=== PATIENT | female | born 1985 | race Caucasian/White ===

== ENCOUNTER 2018-05-05 14:37 | Outpatient (REF) | payer OTHER, SELFPAY ==
--- NOTE | 2018-05-05 14:10 | PAPFT_PTH ---
PATIENT: ISABELL TORRES LOC: [facility] U#:[id number] AGE/SX: 33/F ROOM: RE05/05/[address]: Shona Alexandre RN : 1985 BED: DIS: 05/05/2018 SPEC #: [id number] RECD: 05/05/18 18:11 STATUS: ANN MARIE REQ #: [id number] ALICIA: 05/05/18 14:[address]: Shona Alexandre DEPT: [facility] Cytology RECD BY: Evette Galindo ENTERED: 05/05/18 18:11 SP TYPE: PAPFT OTHR DR: Archana Quintanilla Tissues: 1 - CX/ENDOCX FOR PAP SMEARS Procedures: PAP THIN PREP/UVM Screening HPV DNA PROBE Comments: [id number]
[2018-05-05 15:42] LABS: *AMPHETAMINES SCREEN URINE Negative (Negative); *BARBITURATES SCREEN URINE Negative (Negative); *BENZODIAZEPINES SCREEN URINE Negative (Negative); Cannabinoids THC Negative (Negative); Cocaine Screen,Urine Negative (Negative); METHADONE URINE SCREEN Negative (Negative); OPIATES URINE SCREEN Negative (Negative)
[2018-05-05 15:49] LABS: Tricyclic Antidepressants Negative (Negative)
[2018-05-06 14:17] LABS: Chlamydia Result Negative; GC Result Negative; Specimen Description CERVIX
[2018-05-08 14:36] LABS: Buprenorphine Negative; Norbuprenorphine Negative
== END 2018-05-05 14:57 ==
LOC: LBN 14:37
PROVIDERS: PCP Nurse Practitioner Family; Visit Provider Advanced Practice Midwife
DX: Z11.3 Encounter for screening for infections with a predominantly sexual mode of transmission (principal); Z34.91 Encounter for supervision of normal pregnancy, unspecified, first trimester; Z12.4 Encounter for screening for malignant neoplasm of cervix; Z11.51 Encounter for screening for human papillomavirus (HPV)
CPT/HCPCS: 80307; 87077; 87491; 87591; 88142; 87086; 87186; 87624

== ENCOUNTER 2018-05-14 15:50 | Observation (INO) | payer OTHER, SELFPAY ==
[2018-05-14 15:34] VITALS: BP 138/82; PULSE 65; RESP 16; TEMP 36.5; O2SAT 100
[2018-05-14] MEDS: Fosfomycin Tromethamine 3 GM PACKET PO (16:51)
== END 2018-05-14 18:53 | disposition home or self-care (01) ==
PROVIDERS: Admitting Provider Advanced Practice Midwife; PCP Nurse Practitioner Family; Visit Provider Advanced Practice Midwife
DX: O23.40 Unspecified infection of urinary tract in pregnancy, unspecified trimester (principal); Z88.8 Allergy status to other drugs, medicaments and biological substances
CPT/HCPCS: G0378; J3490

== ENCOUNTER 2018-05-25 17:20 | Outpatient (REF) | payer OTHER, SELFPAY | END 2018-05-25 17:40 | LOC: LBN 17:20 | PROVIDERS: PCP Nurse Practitioner Family; Visit Provider Obstetrics & Gynecology | DX: O23.41 Unspecified infection of urinary tract in pregnancy, first trimester (principal) | CPT/HCPCS: 87086 ==

== ENCOUNTER 2018-06-02 09:03 | Outpatient (CLI) | payer OTHER, SELFPAY ==
[2018-06-02 12:27] LABS: Abs Immature Grans 0.02 k/cumm (0.0-0.09); Absolute Basophil Count 0.02 k/cumm (0.0-0.2); Absolute Eosinophil Count 0.04 k/cumm (0.0-0.7); Absolute Lymphocyte Count 1.96 k/cumm (1.2-3.4); Absolute Monocyte Count 0.44 k/cumm (0.11-0.7); Absolute Neutrophil Count 6.22 k/cumm (1.2-6.7); Basophils % 0.2; Eosinophils % 0.5; HCT 36.6 % (36.0-46.0); HGB 13.3 g/dL (12.0-15.5); Immature Grans % 0.2; Lymphocytes % 22.5; Mean Corp. HGB Concentration 36.3 g/dL (32.0-36.0); Mean Corpuscular Hemoglobin 31.5 pg (27.0-33.0); Mean Corpuscular Volume 86.7 fL (80-95); Mean Platelet Volume 11.6 fL (8.0-11.0); Monocytes % 5.1; Neutrophils % 71.5; Platelet Count 165 x1000/uL (130-400); RBC 4.22 m/cumm (4.00-5.20); RBC Distribution Width 13.1 % (11.7-14.6)
[2018-06-02 12:34] LABS: Glucose,1 Hr (Glucola) 115 mg/dL (80-140)
[2018-06-02 13:06] LABS: TSH (W/Ref FT4) 1.92 uIU/mL (0.358-3.74)
[2018-06-03 09:57] LABS: Hepatitis B Surface Ag Negative (NEGAT)
[2018-06-03 10:04] LABS: HIV-1/2 Ag & Ab Screen Negative (NEGAT)
[2018-06-03 10:08] LABS: Hepatitis C Ab w Rflx HCV PCR Negative (NEGAT)
[2018-06-03 11:29] LABS: Rubella IgG Ab (UVM) Positive; Syphilis Serology (RPR) Negative (Negative); Varicella IgG Antibody Positive
== END 2018-06-02 09:23 ==
PROVIDERS: Advanced Practice Midwife; Obstetrics & Gynecology; PCP Nurse Practitioner Family; Visit Provider Obstetrics & Gynecology Gynecology
DX: Z34.91 Encounter for supervision of normal pregnancy, unspecified, first trimester (principal); Z11.59 Encounter for screening for other viral diseases; Z01.84 Encounter for antibody response examination; Z11.4 Encounter for screening for human immunodeficiency virus [HIV]
CPT/HCPCS: 36415; 80055; 82950; 86787; 86803; 86850; 86900; 86901; 87340; 87389; 84443; 86592; 86762

== ENCOUNTER 2018-07-29 16:23 | Outpatient (REF) | payer MEDICAID, SELFPAY | END 2018-07-29 16:43 | LOC: LBN 16:23 | PROVIDERS: PCP Nurse Practitioner Family; Visit Provider Advanced Practice Midwife | DX: O26.899 Other specified pregnancy related conditions, unspecified trimester (principal); R30.0 Dysuria; Z34.92 Encounter for supervision of normal pregnancy, unspecified, second trimester | CPT/HCPCS: 87077; 87086; 87480; 87510; 87660 ==

== ENCOUNTER 2018-08-21 22:37 | Observation (INO) | payer MEDICAID, SELFPAY ==
[2018-08-21] MEDS: Lactated Ringers 1,000 ML 150 ML IV (23:47)
[2018-08-21 23:56] LABS: Fetal Fibronectin Negative (Negative)
== END 2018-08-22 01:44 | disposition home or self-care (01) ==
LOC: OBS 08-23 09:30
PROVIDERS: Admitting Provider Obstetrics & Gynecology; PCP Nurse Practitioner Family; Visit Provider Obstetrics & Gynecology
DX: O23.42 Unspecified infection of urinary tract in pregnancy, second trimester (principal); Z3A.27 27 weeks gestation of pregnancy
CPT/HCPCS: 96360; 96361; 82731; G0378

== ENCOUNTER 2018-08-30 12:17 | Outpatient (CLI) | payer MEDICAID, SELFPAY ==
[2018-08-30 12:52] LABS: HCT 38.1 % (36.0-46.0); HGB 13.5 g/dL (12.0-15.5); Mean Corp. HGB Concentration 35.4 g/dL (32.0-36.0); Mean Corpuscular Hemoglobin 31.8 pg (27.0-33.0); Mean Corpuscular Volume 89.9 fL (80-95); Mean Platelet Volume 11.5 fL (8.0-11.0); Platelet Count 181 x1000/uL (130-400); RBC 4.24 m/cumm (4.00-5.20); RBC Distribution Width 13.3 % (11.7-14.6); White Blood Cell Count 10.67 k/cumm (4.4-10.8)
[2018-08-30 13:21] LABS: Glucose,1 Hr (Glucola) 130 mg/dL (80-140)
== END 2018-08-30 12:37 ==
PROVIDERS: Advanced Practice Midwife; PCP Nurse Practitioner Family; Visit Provider Obstetrics & Gynecology Gynecology
DX: Z34.93 Encounter for supervision of normal pregnancy, unspecified, third trimester (principal)
CPT/HCPCS: 36415; 82950; 85027

== ENCOUNTER 2018-09-17 16:42 | Outpatient (REF) | payer MEDICAID, SELFPAY | END 2018-09-17 17:02 | LOC: LBN 16:42 | PROVIDERS: PCP Nurse Practitioner Family; Visit Provider Obstetrics & Gynecology Gynecology | DX: O26.893 Other specified pregnancy related conditions, third trimester (principal); R10.2 Pelvic and perineal pain; Z34.93 Encounter for supervision of normal pregnancy, unspecified, third trimester | CPT/HCPCS: 87086 ==

== ENCOUNTER 2018-10-01 09:44 | Outpatient (CLI) | payer MEDICAID, SELFPAY ==
--- NOTE | 2018-10-01 10:39 | DI.US_ITS ---
SYMPTOMS/DIAGNOSIS: DECREASED MOVEMENT BIOPHYSICAL PROFILE: Predicted Gestational Age: Indication/History: 33+3 Wks Range: to Prior US done on: Determined by: First US LMP X History EDC by prior US: 11/18/18 For multiple gestations: Baby PLACENTA: Grade: II Location: Anterior X Posterior PRESENTATION: RT LT LOW LYING PREVIA X FUNDAL Cephalic Trans (Head RT LT ) Varied Breech X BIOMETRY: Anatomy Identified: BPD: mm wks 4 chamber Heart Heart Rate 155 BPM HC: mm wks LVOT Post Fossa AC: mm wks RVOT Ventricles FL: mm wks Stomach Nose Bladder Lips Cisterna Magna: mm CI: Kidneys Palate Cerebellum: mm 3 vessel cord Spine EFW: grms % Cord Insertion NS= not seen Composite Age (US) wks Many abnormalities cannot be diagnosed. A normal exam does not exclude congenital abnormality. EDC by US Amniotic Fluid Index: Normal RUQ: 3.9 LUQ: 2.6 RLQ: 1.1 LLQ: 3.5 Total: 11.1 cm Biophysical Profile: Score 0/2 SHAYY (>2cm) ____2/2____ Respirations (>30 sec) ____2/2____ Body flexion/extension ___2/2 Extremity flexion/extension ____2/2____ TOTAL SCORE __8/8 COMMENTS: The amount of amniotic fluid is normal with an SHAYY of 11.1. The biophysical profile is normal with a score of 8. The placenta is fundal. The fetus is in breech position. cardiac activity is identified. IMPRESSION: Normal biophysical profile.
== END 2018-10-01 10:04 ==
PROVIDERS: PCP Nurse Practitioner Family; Visit Provider Obstetrics & Gynecology
DX: O36.8130 Decreased fetal movements, third trimester, not applicable or unspecified (principal); Z3A.33 33 weeks gestation of pregnancy
CPT/HCPCS: 76815; 59025; 76819

== ENCOUNTER 2018-10-18 12:53 | Outpatient (REF) | payer MEDICAID, SELFPAY | END 2018-10-18 13:13 | LOC: LBN 12:53 | PROVIDERS: PCP Nurse Practitioner Family; Visit Provider Obstetrics & Gynecology Gynecology | DX: Z34.90 Encounter for supervision of normal pregnancy, unspecified, unspecified trimester (principal); Z88.0 Allergy status to penicillin; Z36.85 Encounter for antenatal screening for Streptococcus B | CPT/HCPCS: 87081 ==

== ENCOUNTER 2018-10-26 14:28 | Outpatient (REF) | payer MEDICAID, SELFPAY ==
[2018-10-26 18:04] LABS: *AMPHETAMINES SCREEN URINE Negative (Negative); *BARBITURATES SCREEN URINE Negative (Negative); *BENZODIAZEPINES SCREEN URINE Negative (Negative); Cannabinoids THC Negative (Negative); Cocaine Screen,Urine Negative (Negative); METHADONE URINE SCREEN Negative (Negative); OPIATES URINE SCREEN Negative (Negative)
[2018-10-26 18:07] LABS: Tricyclic Antidepressants Negative (Negative)
== END 2018-10-26 14:48 ==
LOC: LBN 14:28
PROVIDERS: PCP Nurse Practitioner Family; Visit Provider Obstetrics & Gynecology
DX: Z34.93 Encounter for supervision of normal pregnancy, unspecified, third trimester (principal)
CPT/HCPCS: 80307

== ENCOUNTER 2018-11-08 10:49 | Outpatient (CLI) | payer MEDICAID, SELFPAY ==
[2018-11-08 11:11] LABS: HCT 37.6 % (36.0-46.0); HGB 13.3 g/dL (12.0-15.5); Mean Corp. HGB Concentration 35.4 g/dL (32.0-36.0); Mean Corpuscular Hemoglobin 31.5 pg (27.0-33.0); Mean Corpuscular Volume 89.1 fL (80-95); Mean Platelet Volume 11.9 fL (8.0-11.0); Platelet Count 158 x1000/uL (130-400); RBC 4.22 m/cumm (4.00-5.20); RBC Distribution Width 13.4 % (11.7-14.6); White Blood Cell Count 8.93 k/cumm (4.4-10.8)
[2018-11-08 12:48] LABS: Anion Gap 12.2 mmol/L (3-11); BUN 11 mg/dL (7-18); CO2 20.8 mmol/L (21.0-32.0); CREATININE 0.73 mg/dL (0.55-1.02); Calcium 8.9 mg/dL (8.5-10.1); Chloride 103 mmol/L (98-107); Glucose 75 mg/dL (70-100); Potassium 4.1 mmol/L (3.5-5.1); Sodium 136 mmol/L (136-145)
== END 2018-11-08 11:09 ==
PROVIDERS: PCP Nurse Practitioner Family; Visit Provider Obstetrics & Gynecology Gynecology
DX: O34.211 Maternal care for low transverse scar from previous cesarean delivery (principal); Z30.2 Encounter for sterilization; Z01.812 Encounter for preprocedural laboratory examination; Z01.818 Encounter for other preprocedural examination
CPT/HCPCS: 36415; 80048; 85027; 86850; 86900; 86901

== ENCOUNTER 2018-11-10 06:09 | Inpatient (IN) | payer MEDICAID, SELFPAY ==
--- NOTE | 2018-11-09 18:27 | W.PM.HP.N ---
Date of service: 11/09/18 Time of Service: 18:27 Assessment and Plan (1) : Current visit: No Status: Acute Qualifiers: Weeks of gestation: 39 weeks Qualified Code(s): Z3A.39 - 39 weeks gestation of (2) Previous section: Current visit: No Status: Chronic Patient has declined a trial of labor. She will undergo a elective repeat delivery on 5564 2018. She has been counseled regarding the risks of the procedure including the risk of infection risk of damage to bowel bladder and surrounding structures including ureters. She is aware that if she were to go to labor she has not opportunity will be encouraged to attempt a trial of labor. Patient desires tubal sterilization at the time of surgery. She has been counseled regarding LARC and declines alternative methods of contraception. She is firm in her decision not have any future pregnancies. (3) Severe allergic reaction with respiratory distress: Current visit: No Status: Acute Plan is no narcotics Intra-Op or postop. History of Present Illness Chief Complaint: Elective repeat delivery Narrative: Ms. Alejo is a 33-year-old G2, P1 female with an estimated date of delivery of 11/18/2018 currently 38-5/7 weeks estimated gestational age who presents for a preoperative history and physical. Patient has been counseled during this regarding . She declined a trial of labor. course Continue to care at 8 weeks estimated gestational age. Total of 14 visits. First trimester blood pressure 129/74. Third trimester blood pressure 132/89 Total weight gain 21 pounds. Size has been equal to dates. She had a normal second trimester morphology ultrasound. Advanced maternal age. Normal [place] testing. Issues this -Multiple allergies. Review her chart showed no evidence of anaphylaxis to antibiotics she did have an episode of throat closing and was treated for an anaphylactic reaction to morphine at the [facility] emergency department prior to . We attempted to have allergy testing performed during this but no lodge sales associate was willing to treat the patient while she was . Because of the patient's adverse reaction to morphine analgesia was consulted and a plan was formulated. She will receive no Duramorph in her spinal and have Exparel infiltrated in her SQ tissue around her Pfannenstiel skin incision. Nonsteroidal anti-inflammatories will be the patient's primary mode of analgesia. -GBS UCx +. She was treated first trimester second trimester test of cure showed mixed gram-positive claribel. Review of Systems Constitutional Reports difficulty sleeping and Reports other (Nervous about the surgery and about being allergic) Comments: Concerned that she may have an adverse reaction to any medications administered during the surgery. Respiratory Reports system reviewed and no additional complaints, except as docu Gastrointestinal Reports cramping Genitourinary Comments: Frequent movement. Odilon King contractions. Musculoskeletal Reports other (Bilateral lower extremity edema) Psychiatric Reports anxiety (But having an allergic reaction to inadvertently given morphine) [facility] Medical History UTI (urinary tract infection) during (Acute) Anal pruritus (Resolved) Positive urine test (Acute) Allergy to morphine (Acute) BMI 34.0-34.9,adult (Resolved) RLQ abdominal pain (Resolved) Surgical History Previous section (Chronic) section (~2014) Colonoscopy - MAC (08/20/17) Social History Smoking/Tobacco Use Status: Never Alcohol Intake: never Details: Stopped all alcohol with positive test Drug use: Never Substance use type: does not use Household members: spouse, children and other Details: Jerome, daughter Pooja Number of Children: 1 Seatbelt use: always Do you feel safe in your relationship?: Yes Female Reproductive History Menstrual control method: none History History 2 Para 1 Hx # Term Pregnancies 1 Multiple births 0 Hx # Pregnancies 0 Ectopic pregnancies 0 AB induced 0 Hx Number of Living Children 1 AB spontaneous 0 Past Pregnancies Del. Date GA/Weeks # Outcome Route Wgt Sex Labor Lgth Anesthesia Location Prov Complic Unknown 40 No Successful 8 lb Female breech, [facility] 01/24/16 Delivery Date: 01/24/16 No notes to display Delivery Date: On 05/05/18 @ 13:26 MABEL CHOI desires repeat c/s. Meds Home Medications Medication Instructions Recorded Confirmed Type PNV cmb#95-ferrous fumarate-FA 1 ea PO DAILY 04/22/17 11/08/18 History [Prenavite] hydrocortisone acetate 1 gm TOPICAL BID #1 script 09/01/17 11/08/18 Rx ranitidine 150 mg tablet 150 mg PO DAILY #30 tab 05/05/18 11/08/18 Rx epinephrine 0.3 mg/0.3 mL 0.3 mg IM ONCE #2 each 05/14/18 11/08/18 Rx injection, auto-injector Allergies Allergy/AdvReac Type Severity Reaction Status Date / Time morphine Allergy Severe Anaphylaxsis-episode Verified 11/08/18 10:31 at [facility] ED amoxicillin Allergy Intermediate Is Verified 11/08/18 10:31 allergic but no anaphylaxis nitrofurantoin Allergy Intermediate No Verified 11/08/18 10:31 [From Macrobid] Anaphylaxsis Sulfa (Sulfonamide Allergy Intermediate No Verified 11/08/18 10:31 Antibiotics) Anaphylaxsis Exam Const General: anxious (Tearful during conversation) Orientation: alert, awake and oriented x3 Resp Effort & Inspection: normal respiratory effort Auscultation: clear to auscultation bilaterally Cardio Palpation: normal PMI Rate: regular rate Rhythm: regular rhythm Heart Sounds: S1 normal and S2 normal GI Inspection: normal to inspection Palpation: soft General: deferred OB/External & Speculum: deferred Other: heart rate in 140s Skin General skin exam: no rashes or lesions noted
--- NOTE | 2018-11-09 18:30 | HPE_ITS ---
Date of service: 11/09/18 Time of Service: 18:27 Assessment and Plan (1) : Current visit: No Status: Acute Qualifiers: Weeks of gestation: 39 weeks Qualified Code(s): Z3A.39 - 39 weeks gestation of (2) Previous section: Current visit: No Status: Chronic Patient has declined a trial of labor. She will undergo a elective repeat delivery on 5564 2018. She has been counseled regarding the risks of the procedure including the risk of infection risk of damage to bowel bladder and surrounding structures including ureters. She is aware that if she were to go to labor she has not opportunity will be encouraged to attempt a trial of labor. Patient desires tubal sterilization at the time of surgery. She has been counseled regarding LARC and declines alternative methods of contraception. She is firm in her decision not have any future pregnancies. (3) Severe allergic reaction with respiratory distress: Current visit: No Status: Acute Plan is no narcotics Intra-Op or postop. History of Present Illness Chief Complaint: Elective repeat delivery Narrative: Ms. Alejo is a 33-year-old G2, P1 female with an estimated date of delivery of 11/18/2018 currently 38-5/7 weeks estimated gestational age who presents for a preoperative history and physical. Patient has been counseled during this regarding . She declined a trial of labor. course Continue to care at 8 weeks estimated gestational age. Total of 14 visits. First trimester blood pressure 129/74. Third trimester blood pressure 132/89 Total weight gain 21 pounds. Size has been equal to dates. She had a normal second trimester morphology ultrasound. Advanced maternal age. Normal [place] testing. Issues this -Multiple allergies. Review her chart showed no evidence of anaphylaxis to antibiotics she did have an episode of throat closing and was treated for an anaphylactic reaction to morphine at the [facility] emergency department prior to . We attempted to have allergy testing performed during this but no bus repair supervisor was willing to treat the patient while she was . Because of the patient's adverse reaction to morphine analgesia was consulted and a plan was formulated. She will receive no Duramorph in her spinal and have Exparel infiltrated in her SQ tissue around her Pfannenstiel skin incision. Nonsteroidal anti-inflammatories will be the patient's primary mode of analgesia. -GBS UCx +. She was treated first trimester second trimester test of cure showed mixed gram-positive claribel. Review of Systems Constitutional Reports difficulty sleeping and Reports other (Nervous about the surgery and about being allergic) Comments: Concerned that she may have an adverse reaction to any medications administered during the surgery. Respiratory Reports system reviewed and no additional complaints, except as docu Gastrointestinal Reports cramping Genitourinary Comments: Frequent movement. Odilon King contractions. Musculoskeletal Reports other (Bilateral lower extremity edema) Psychiatric Reports anxiety (But having an allergic reaction to inadvertently given morphine) [facility] Medical History UTI (urinary tract infection) during (Acute) Anal pruritus (Resolved) Positive urine test (Acute) Allergy to morphine (Acute) BMI 34.0-34.9,adult (Resolved) RLQ abdominal pain (Resolved) Surgical History Previous section (Chronic) section (~2014) Colonoscopy - MAC (08/20/17) Social History Smoking/Tobacco Use Status: Never Alcohol Intake: never Details: Stopped all alcohol with positive test Drug use: Never Substance use type: does not use Household members: spouse, children and other Details: Jerome, daughter Pooja Number of Children: 1 Seatbelt use: always Do you feel safe in your relationship?: Yes Female Reproductive History Menstrual control method: none History History 2 Para 1 Hx # Term Pregnancies 1 Multiple births 0 Hx # Pregnancies 0 Ectopic pregnancies 0 AB induced 0 Hx Number of Living Children 1 AB spontaneous 0 Past Pregnancies Del. Date GA/Weeks # Outcome Route Wgt Sex Labor Lgth Anesthesia Location Prov Complic Unknown 40 No Successful 8 lb Female breech, [facility] 01/24/16 Delivery Date: 01/24/16 No notes to display Delivery Date: On 05/05/18 @ 13:26 MABEL CHOI desires repeat c/s. Meds Home Medications Medication Instructions Recorded Confirmed Type PNV cmb#95-ferrous fumarate-FA 1 ea PO DAILY 04/22/17 11/08/18 History [Prenavite] hydrocortisone acetate 1 gm TOPICAL BID #1 script 09/01/17 11/08/18 Rx ranitidine 150 mg tablet 150 mg PO DAILY #30 tab 05/05/18 11/08/18 Rx epinephrine 0.3 mg/0.3 mL 0.3 mg IM ONCE #2 each 05/14/18 11/08/18 Rx injection, auto-injector Allergies Allergy/AdvReac Type Severity Reaction Status Date / Time morphine Allergy Severe Anaphylaxsis-episode Verified 11/08/18 10:31 at [facility] ED amoxicillin Allergy Intermediate Is Verified 11/08/18 10:31 allergic but no anaphylaxis nitrofurantoin Allergy Intermediate No Verified 11/08/18 10:31 [From Macrobid] Anaphylaxsis Sulfa (Sulfonamide Allergy Intermediate No Verified 11/08/18 10:31 Antibiotics) Anaphylaxsis Exam Const General: anxious (Tearful during conversation) Orientation: alert, awake and oriented x3 Resp Effort & Inspection: normal respiratory effort Auscultation: clear to auscultation bilaterally Cardio Palpation: normal PMI Rate: regular rate Rhythm: regular rhythm Heart Sounds: S1 normal and S2 normal GI Inspection: normal to inspection Palpation: soft General: deferred OB/External & Speculum: deferred Other: heart rate in 140s Skin General skin exam: no rashes or lesions noted
[2018-11-10] VITALS (14 sets, daily range): BP systolic 121–134; BP diastolic 70–86; PULSE 71–86; RESP 16–18; TEMP 36.6–37.1; O2SAT 94–98
[2018-11-10] MEDS: Lactated Ringers 1,000 ML 125 ML IV ×2 (07:03→19:42)
[2018-11-10] MEDS: Sodium Citrate 30 ML CUP PO (07:31)
--- NOTE | 2018-11-10 08:36 | FALL_PTH ---
PATIENT: ISABELL TORRES LOC: [facility] U#:[id number] AGE/SX: 33/F ROOM: OBS.301 RE11/10/[address]: Emily Yao : 1985 BED: A DIS: 11/13/2018 SPEC #: [id number] RECD: 11/10/18 12:13 STATUS: ANN MARIE REQ #: [id number] ALICIA: 11/10/18 08:[address]: Emily Yao DEPT: Surgical Specimen RECD BY: Evette Galindo ENTERED: 11/10/18 12:14 SP TYPE: Fall OTHR DR: Archana Quintanilla MD Tissues: 1 - FALLOPIAN TUBE (STERILIZATION) 2 - FALLOPIAN TUBE (STERILIZATION) Procedures: GROSS AND MICRO LEVEL 2 Comments: [id number]
[2018-11-10] MEDS: Bupivacaine 0.5% Pres-Free 30 ML VIAL (08:55)
[2018-11-10] MEDS: FentaNYL/ROPIvacaine 2 mcg/ml and 0.1% 200 ML CADD Cassette EP (11:58)
[2018-11-10] MEDS: Bupivacaine 0.25% Pres-Free 10 ML VIAL EP (11:58)
[2018-11-10] MEDS: fentaNYL 100 MCG/2 ML VIAL EP (12:21)
[2018-11-10] MEDS: Bupivacaine 0.25% Pres-Free 30 ML VIAL (12:21)
--- NOTE | 2018-11-10 12:42 | W.PM.OP ---
Date of service: 11/10/18 Time of Service: 12:44 Operative Note DATE OF PROCEDURE: 11/10/18 PRE-OP DIAGNOSIS: Elective repeat delivery with bilateral tubal sterilization POST-OP DIAGNOSIS: same PROCEDURE: Low transverse delivery with bilateral salpingectomy SUPERVISORY CIVIL ENGINEER: Summer Dang ANESTHESIA: spinal ESTIMATED BLOOD LOSS: 600 PATHOLOGY: other (Bilateral fallopian tubes to pathology) COMPLICATIONS: None Patient was transported to: floor Patient's condition: stable Indications: 33-year-old G2, P1 female who underwent a primary delivery 3 years ago for breech presentation presents for he scheduled elective repeat delivery. Patient requested permanent sterilization at the time of her delivery Findings: Viable male infant in the cephalic presentation not engaged in the pelvis. Clear amniotic fluid normal uterus fallopian tubes and ovaries. His parents intend to name him Geovani. Procedure Description: Patient was taken to the operating room where she was placed in the sitting position and spinal anesthesia was administered without difficulty. She was then placed in the dorsal-supine position with a leftward tilt, a Elizabeth catheter was inserted to gravity drainage, the vagina was prepped with Betadine and her abdomen was prepped and draped in the usual sterile fashion. Lower extremity SCDs were in place. She received 2 g of Ancef prior to skin incision and surgical timeout was performed. After an adequate level of anesthesia was obtained a scalpel was used to incise the previous Pfannenstiel skin incision scar. Sub-cutaneous tissue was then dissected using electrocautery to level the rectus fascia. Rectus fascia was nicked in the midline and the incision extended laterally using curved Rodriguez scissors. 2 hiram clamps were applied to the superior aspect of this incision and the rectus fascia was dissected off of the underlying rectus muscles using blunt technique and Bovie electrocautery. A similar technique was carried out on the superior aspect of this incision. Rectus muscles were then midline and the peritoneum entered bluntly. A bladder blade was then placed into the abdominal incision and the bladder retracted away from the operative field. The vesicouterine peritoneum was incised with Metzenbaum scissors, the incision was extended laterally, and bladder flap created digitally. A scalpel was used to make a transverse incision in the lower uterine segment. The amniotic sac was ruptured with blunt techique and copious clear amniotic fluid was noted. A single gloved hand was placed into the uterine cavity and the head was noted to be in the cephalic position and not engaged. The fetus was delivered through the incision using a Kiwi cup with the assistance of fundal pressure. Four applications of the kiwi cup were performed before the uterine incision was extended laterally and the head was delivered followed by the shoulders, trunk and lower extremities without difficulty. Cord was doubly clamped and cut and the infant was handed off to the pediatric team. The placenta was delivered with a combination of fundal uterine massage and gentle cord traction. Uterus was then exteriorized cleared of all clots and debris and the uterine incision was reapproximated with a running lock suture of 0 Vicryl followed by a second imbricating suture of 0 Vicryl. Several interrupted sutures of 0 Vicryl was used along the uterine incision to achieve excellent hemostasis. Attention was then turned to the patient's left fallopian tube was grasped with a Teresa clamp followed out to its fimbriated end and clamped cauterized and transected using LigaSure device at the cornua region. LigaSure device was then used to cauterize and transect the fallopian tube attachments to the mesosalpinx and the tube was freed from all attachments and passed off of the operative field. A similar technique was carried out on the contralateral fallopian tube. Both fallopian tube pedicles were inspected and noted to be hemostatic. Uterus was then returned to the abdomen where the paracolic gutters were cleared of all clots and debris. The uterine incision was inspected and found to be hemostatic as was the bladder flap and the anterior abdominal wall. 30cc of a 1:1 mixture of Enalapril and 50% Bupivacaine was infiltrated into fascia prior to reapproximation. The abdominal peritoneum was re-approximated with a running suture of 2-0 Vicryl. The rectus fascia was then closed with 0 Vicryl extending from the lateral margins and overlapping in the midline. The dosing with 30cc of a 1:1 mixture of Enalapril and 50% Bupivacaine was once again performed. Subcutaneous deadspace was closed with a running suture of 2-0 Vicryl and the skin closed with a subcuticular closure of 4-0 Vicryl. Skin glue was applied to the Pfannenstiel skin incision which was then covered with a sterile ABD pad. Uterus was massaged for any remaining clots debris's and the patient transferred to gurney and transported to recovery area in stable condition. All sponge lap and needle counts are correct x2.
[2018-11-10] MEDS: Prenatal Multivitamin w/CA,FE TAB 1 TAB PO (17:25)
[2018-11-10] MEDS: Docusate Sodium 100 MG CAP PO (19:34)
[2018-11-11] MEDS: Ketorolac 30 MG/ML VIAL IVP ×4 (00:50→22:30)
[2018-11-11] MEDS: FentaNYL/ROPIvacaine 2 mcg/ml and 0.1% 200 ML CADD Cassette EP (05:30)
[2018-11-11 06:58] LABS: HCT 31.8 % (36.0-46.0); HGB 10.8 g/dL (12.0-15.5); Mean Corpuscular Volume 91.4 fL (80-95); Mean Platelet Volume 11.6 fL (8.0-11.0); Platelet Count 124 x1000/uL (130-400); RBC 3.48 m/cumm (4.00-5.20); RBC Distribution Width 13.8 % (11.7-14.6); White Blood Cell Count 10.38 k/cumm (4.4-10.8)
[2018-11-11] MEDS: Prenatal Multivitamin w/CA,FE TAB 1 TAB PO (08:47)
[2018-11-11] MEDS: Docusate Sodium 100 MG CAP PO ×2 (08:48→20:45)
[2018-11-11] MEDS: Normal Saline Flush 10 ML SYR IV ×3 (08:48→22:38)
--- NOTE | 2018-11-11 09:18 | PDOC.ANES ---
Anesthesia Note Daily epidural management: Pain level minimal to 0 at rest, 4-5 with movement. Complaining more about her butt being sore from sitting in bed. Left leg still slightly weak but can lift leg off of bed. VSS,no nausea. Discussed need to be up out of bed. Plan to decrease basal infusion to 5 ml/hr, discouraged use of PCEA unless necessary. With plan to either d/c infusion this afternoon maintaining a capped catheter until 11/12/18 am. Or continue at 5 ml/hr overnight depending on tolerance today.
[2018-11-11] MEDS: Lactated Ringers 1,000 ML 125 ML IV ×2 (10:40→18:32)
[2018-11-12] MEDS: Prenatal Multivitamin w/CA,FE TAB 1 TAB PO (08:43)
[2018-11-12] MEDS: Ibuprofen 600 MG TAB PO ×3 (08:43→21:24)
[2018-11-12] MEDS: Docusate Sodium 100 MG CAP PO ×2 (08:54→21:23)
--- NOTE | 2018-11-12 09:01 | PDOC.ANES ---
Anesthesia Note Daily Epidural Management: Up in room independently, VSS, pain tolerable. Epidural infusion stopped at 0831, catheter left in place and capped. Will re-evaluate in a few hours. Encouraged use of Ibuprofen.
[2018-11-12] MEDS: Acetaminophen 325 MG TAB 650 MG PO ×2 (12:57→17:18)
[2018-11-13] MEDS: Acetaminophen 325 MG TAB 650 MG PO (00:02)
[2018-11-13] MEDS: Ibuprofen 600 MG TAB PO ×2 (03:04→08:46)
[2018-11-13] MEDS: Prenatal Multivitamin w/CA,FE TAB 1 TAB PO (08:12)
[2018-11-13] MEDS: Docusate Sodium 100 MG CAP PO (08:15)
--- NOTE | 2018-11-13 08:28 | W.PM.PROGNOT ---
Date of Service Date of service: 11/13/18 Time of Service: 08:28 Assessment and Plan (1) S/P section: Current visit: Yes Status: Acute Doing well. Ok to discharge home today. Follow up scheduled in the clinic for incision check. Subjective Interval history since last seen: Doing well today. Pain well controlled with Advil Tolerating regular diet. No nausea or vomiting Exam GI Other: Incision C/D/I Objective Objective Clinical Data: Vital Signs Temperature 98.2 F 11/10/18 22:03 Pulse 78 11/10/18 22:03 Pulse Rhythm Regular 11/10/18 06:33 Respiratory Rate 16 11/10/18 22:03 Respiratory Effort 11/10/18 22:00 Respiratory Depth Normal 11/10/18 22:00 Respiratory Pattern Normal 11/10/18 22:00 Blood Pressure 126/86 11/10/18 22:03 Pulse Oximetry 95 11/10/18 22:03 Oxygen Delivery Method Room Air 11/12/18 00:10 Oxygen Flow Rate 0 11/12/18 00:10 Pain Level 4 11/12/18 17:18 Intake & Output 11/12/18 11/12/18 11/13/18 11:59 23:59 11:59 Intake Total 1000 / 1000 Balance 1000 / 1000 Intake: IV 1000 / 1000 Laboratory Results WBC 10.38 k/cumm (4.4-10.8) 11/11/18 06:50 RBC 3.48 m/cumm (4.00-5.20) L 11/11/18 06:50 Hgb 10.8 g/dL (12.0-15.5) L D 11/11/18 06:50 Hct 31.8 % (36.0-46.0) L 11/11/18 06:50 MCV 91.4 fL (80-95) 11/11/18 06:50 MCH 31.0 pg (27.0-33.0) 11/11/18 06:50 MCHC 34.0 g/dL (32.0-36.0) 11/11/18 06:50 RDW 13.8 % (11.7-14.6) 11/11/18 06:50 Plt Count 124 x1000/uL (130-400) L 11/11/18 06:50 MPV 11.6 fL (8.0-11.0) H 11/11/18 06:50
== END 2018-11-13 11:00 | disposition home or self-care (01) | DRG 785 ==
LOC: PDS 09:36 → OBS 09:50
PROVIDERS: Admitting Provider Obstetrics & Gynecology Gynecology; PCP Nurse Practitioner Family; Visit Provider Obstetrics & Gynecology Gynecology
PROC: 10D00Z1 Extraction of Products of Conception, Low, Open Approach (ICD-10-PCS; CPT 59514; principal; 2018-11-10 07:30)
DX: O34.211 Maternal care for low transverse scar from previous cesarean delivery (principal); Z3A.39 39 weeks gestation of pregnancy; Z37.0 Single live birth; Z30.2 Encounter for sterilization; O99.824 Streptococcus B carrier state complicating childbirth; G89.18 Other acute postprocedural pain; O32.4XX0 Maternal care for high head at term, not applicable or unspecified
CPT/HCPCS: 59514; 58611; 36415; 85027; NC; 88302; J1885; J2405; J3010; J3490

== ENCOUNTER 2018-12-27 12:07 | Outpatient (CLI) | payer MEDICAID, SELFPAY ==
[2018-12-27 13:49] LABS: TSH (W/Ref FT4) 2.23 uIU/mL (0.36-3.74)
== END 2018-12-27 12:27 ==
PROVIDERS: PCP Nurse Practitioner Family; Visit Provider Obstetrics & Gynecology Gynecology
DX: R53.83 Other fatigue (principal); Z39.2 Encounter for routine postpartum follow-up
CPT/HCPCS: 36415; 84443

== ENCOUNTER 2019-01-26 14:42 | Outpatient (CLI) | payer MEDICAID, SELFPAY ==
--- NOTE | 2019-01-26 13:51 | DI.RAD_ITS ---
SYMPTOMS/DIAGNOSIS: KNEE PAIN LEFT KNEE: Three views were obtained. No bony or soft tissue abnormality seen. RIGHT KNEE: Three views were obtained. No bony or soft tissue abnormality seen.
== END 2019-01-26 15:02 ==
PROVIDERS: PCP Nurse Practitioner Family; Visit Provider Student in an Organized Health Care Education/Training Program
DX: M25.561 Pain in right knee (principal); M25.562 Pain in left knee
CPT/HCPCS: 73562

== ENCOUNTER 2019-03-15 15:04 | Emergency (ER) | payer MEDICAID, SELFPAY ==
[2019-03-15 15:07] VITALS: BP 138/66; PULSE 82; RESP 18; TEMP 36.6; O2SAT 99
--- NOTE | 2019-03-15 15:24 | DI.RAD_ITS ---
EXAM: XR KNEE LT 4V AP,LAT,BRENDA,PAT INDICATION: fall, difficulty ambulating. COMPARISON: No exams were available for comparison TECHNIQUE: 2D digital imaging was performed. FINDINGS: The bony structures are normally mineralized. There is a small effusion. Small bony densities adjac ent to the medial pole of the patella could represent a small avulsion fracture.
[2019-03-15] MEDS: Acetaminophen 500 MG TAB 1000 MG PO (15:30)
--- NOTE | 2019-03-15 15:37 | ED.GENADUL_ITS ---
Discharge Plan Disposition Patient Disposition: HOME Condition: Stable Discharge Details Chief Complaint: Orthopedic Clinical Impression: Closed dislocation of patella Primary Care Provider: Archana Quintanilla ED Provider: Fidel Latham Home Meds and New Rx's Prescriptions: No Action PNV cmb#95-ferrous fumarate-FA [] 1 EACH tablet 1 ea PO DAILY RF: 0 epinephrine [EpiPen 2-Fabián] 0.3 mg/0.3 mL auto-injector 0.3 mg IM ONCE Qty: 2 RF: 0 Discharge Instructions Instructions: Patellar Dislocation (ED), Knee Immobilizer (ED) Additional Instructions: Please use crutches for the next couple days and then you may perform weightbearing activities as tolerated by discomfort. For pain control you may take coch-[id number]-[id number] medication such as 600 mg of ibuprofen along with 1000 mg of acetaminophen every 6 hours. Otherwise take your standard [id number]-[id number] medications as directed on packaging. You may apply ice to help with swelling. Feel free to return the emergency department for any new or worsening symptoms otherwise follow-up with orthopedist as needed. Referrals: Reese Palencia MD [ [facility] STAFF PHYSICIAN] - 2 weeks (Please call the office for arrangement of follow-up appointment) Discharge Data Discharge Date/Time-TO BE ENTERED AT DEPARTURE: 03/15/19 16:59 <Fidel Latham NP - Last Filed: 03/21/19 09:40> Patient signed out to me pending radiological imaging. Prior to me being able to review the imaging Dr. Palencia was able to examine the patient and stated that patient had patella dislocation with small chip fragment. Recommended knee immobilization and crutches and to follow-up in their office in the next 2 weeks. These recommendations were followed. After discussion of diagnosis and plan of care patient has no further needs, questions, or concerns and states clear understanding to return to the emergency department for any worsening symptoms. HPI <ZANDER Chavira - Last Filed: 03/17/19 22:00> General Date/Time Provider Initiated Documentation: 03/15/19 15:07 . HPI Narrative: Patient presents for a fall off a retaining wall approximately 4 feet at home, was able to break the fall but left leg was injured when she struck the ground. Patient denies striking head neck or back before was able to catch her. Patient reports a very loud pop and immediate pain in her left knee. Patient reports difficulty ambulating since. Injury occurred prior to arrival. Patient reports mild anterior left knee numbness but no distal numbness, tingling. No open wounds. Related Data Home Medications Medication Instructions Recorded Confirmed PNV cmb#95-ferrous fumarate-FA 1 ea PO DAILY 04/22/17 03/15/19 [] epinephrine 0.3 mg/0.3 mL 0.3 mg IM ONCE #2 each 05/14/18 03/15/19 injection, auto-injector Previous Rx's Medication Instructions Recorded epinephrine 0.3 mg/0.3 mL 0.3 mg IM ONCE #2 each 05/14/18 injection, auto-injector Allergies Allergy/AdvReac Type Severity Reaction Status Date / Time morphine Allergy Severe Anaphylaxsis-episode Verified 03/08/19 10:16 at [facility] ED amoxicillin Allergy Intermediate Anaphylaxsi Verified 03/08/19 10:16 s nitrofurantoin Allergy Intermediate Hives, lip Verified 03/08/19 10:16 [From Macrobid] swelling Sulfa (Sulfonamide Allergy Intermediate Hives, Verified 03/08/19 10:16 Antibiotics) lips swelling General Stated Complaint: Orthopedic SAW: 3 Review of Systems <ZANDER Chavira - Last Filed: 03/17/19 22:00> Review of Systems ROS Unobtainable: All systems reviewed & are unremarkable except as noted in HPI and below ENT Ears, Nose, Mouth, and Throat: Denies neck pain Musculoskeletal Musculoskeletal: Denies back pain, Denies deformity, Reports joint swelling, Reports limited range of motion, Denies neck pain and Denies numbness Integumentary/Breasts Skin/Breast: Denies wounds Neurologic Neurologic: Denies numbness [facility] <ZANDER Chavira - Last Filed: 03/17/19 22:00> Medical History Allergy to morphine (Acute) History of throat closing after a single dose. Anal pruritus (Resolved) Most likely secondary to dietary factors. Negative colonoscopy BMI 34.0-34.9,adult (Resolved) gained 40lbs during her 1st . Has not been able to lose it. Positive urine test (Acute) RLQ abdominal pain (Resolved) seen [facility] ED 04/21/17. CT of abd/pelvis 2cm R ovarian cyst. Nl appendix. UTI (urinary tract infection) during (Acute) enterococcus sp. Rx with Fosfomycin x1. LIBRADO 06/02/16. Mixed gram + claribel. 07/29/18 GBS + UTI. Rx fosfomycin p.o. LIBRADO mixed gram-positive claribel Surgical History section (~2014) [facility]. Breech presentation. Colonoscopy - MAC (08/20/17) Previous section (Chronic) Family History Other Breast cancer Social History Smoking/Tobacco Use Status: Never Alcohol Intake: never Details: Stopped all alcohol with positive test Drug use: Never Substance use type: does not use Household members: spouse, children and other Details: Jerome, daughter Pooja Number of Children: 1 Seatbelt use: always Do you feel safe at home: Yes Do you feel safe in your relationship?: Yes Female Reproductive History Menstrual control method: none History History 2 Para 1 Hx # Term Pregnancies 1 Multiple births 0 Hx # Pregnancies 0 Ectopic pregnancies 0 AB induced 0 Hx Number of Living Children 1 AB spontaneous 0 Past Pregnancies Del. Date GA/Weeks # Outcome Route Wgt Sex Labor Lgth Anesthes ia Location Prov Complic Unknown 40 No Successful 3.629 kg Female breech, [facility] 01/24/16 11/10/18 39 No Successful 3.033 kg Male Emily O'douglas Delivery Date: On 05/05/18 @ 13:26 MABEL CHOI desires repeat c/s. Delivery Date: 01/24/16 No notes to display Delivery Date: 11/10/18 On 11/23/18 @ 10:22 Simi Redding LPN bilateral salpingectomy Exam <ZANDER Chavira - Last Filed: 03/17/19 22:00> Narrative Exam Narrative: CONST: Healthy appearing patient, in no acute distress. Well hydrated. Alert and alert. HENMT: Head nomocephalic, normal to inspection. Atraumatic. Hearing grossly normal. NECK: Normal visual inspection. FROM. Trachea midline. No Midline tenderness. CHEST: Normal insepection of the chest. No pain with palpation RESP: Normal respiratory effort. Speaking full sentences. No cough. No audible wheezing. No retractions. Breath sounds full and equal bilaterally MUSCULOSKELETAL: Left knee effusion present. Medial and lateral joint line tenderness noted. Mild anterior patella ligament tenderness. Unable to straight leg raise from the bed. Exam limited due to patient's complaints of pain with attempted range of motion. No haskins pain with palpation. No ankle pain with palpation. Achilles tendon intact and nontender. Sensation intact in the foot distally. Pulses intact distally. SKIN: Normal. Dry. No rashes. NEURO: Alert and awake. Speech clear. PSYCH: Normal affect. Cooperative. Course <ZANDER Chavira - Last Filed: 03/17/19 22:00> Vital Signs Vital signs: Vital Signs Temperature 36.6 C 03/15/19 15:07 Pulse 82 03/15/19 15:07 Respiratory Rate 18 03/15/19 15:07 Blood Pressure 138/66 03/15/19 15:07 Pulse Oximetry 99 03/15/19 15:07 Temperature 36.6 C 03/15/19 15:07 Temperature Source Skin 03/15/19 15:07 Pulse 82 03/15/19 15:07 Respiratory Rate 18 03/15/19 15:07 Respiratory Effort Non-Labored 03/15/19 15:15 Blood Pressure 138/66 03/15/19 15:07 Pulse Oximetry 99 03/15/19 15:07 Oxygen Delivery Method Room Air 03/15/19 15:07 Oxygen Flow Rate 0 03/15/19 15:07 Pain Level 8 03/15/19 15:07 Sign Out <ZANDER Chavira - Last Filed: 03/17/19 22:00> Sign Out Data: Sign Out Comment: Signed out pending x-ray evaluation after fall for left leg pain and difficulty with straight leg raise Last updated by Christine Merrill PA at 03/15/19 16:21
--- NOTE | 2019-03-15 16:26 | DI.VRAD_ITS ---
PROCEDURE INFORMATION: Exam: XR Left Knee Exam date and time: 03/15/2019 4:07 PM Clinical history: 34 years old, female; Other: Fall, difficulty ambulating TECHNIQUE: Imaging protocol: XR Left knee. Views: 4 or more views. COMPARISON: CR XR knee LT 3V AP,lat,ami 01/26/2019 2:04 PM FINDINGS: Bones/joints: Small joint effusion. Internal derangement is not excluded. Consider MRI. Soft tissues: Calcific density adjacent to the patella medially. Small avulsion is not excluded. IMPRESSION: Small joint effusion. Internal derangement is not excluded. Consider MRI. Calcific density adjacent to the patella medially. Small avulsion is not excluded. Dictated and Authenticated by: Oliver Rodriguez MD. Ordering:THI King MD
--- NOTE | 2019-03-15 22:29 | W.ORTHOCONSU ---
Date of service: 03/15/19 Time of Service: 16:29 History of Present Illness History of Present Illness Chief Complaint: Left Knee Pain Narrative: Juanita is a 34yo female who jumped off of a landing. She landed awkwardly and felt an immediate pop in the left knee. She reports she has been having years of left knee pain. I saw her for knee pain in the office with a history of patellar dislocation when she was younger. She was able to walk although with some pain. She describes some decreased sensation over the anterior aspect of the knee but not traveling down the leg. The pain is worse over the medial aspect of the knee. She denies any injury to the skin. No loss of consciousness or head trauma. No hip or groin pain. Assessment and Plan Assessment and plan (1) Dislocation of patella, left, closed: Status: Acute Assessment and plan: Juanita is a 34-year-old who suffered a likely closed patellar dislocation of the left knee. She has a history of patellofemoral syndrome and a previous dislocation and a much younger age. There is a bony fragment seen on the x-ray which likely represents an avulsion of the NPFL. Given her age and current activity level, I do think this could be treated nonoperatively. Allowing this to scar in with leaving a slightly more stretch position and could relieve some of the pressure within the patellofemoral joint, but this could also increase her risk of recurrent dislocation. I would recommend a trial of conservative options and if there is any continued apprehension or dislocation past 6 weeks this would necessitate surgical intervention. I will review the case with my partner, Dr. Early, for any further input or treatment recommendations. I will see her back in 2 weeks. Until then, she is to keep the knee straight in a knee immobilizer. She may place all of her weight on the leg but should use crutches for support until comfortable walking the knee immobilizer. We will then begin a graduated motion protocol starting at 2 weeks. Qualifiers: Encounter type: initial encounter Qualified Code(s): S83.005A - Unspecified dislocation of left patella, initial encounter Review of Systems Review of Systems ROS Unobtainable: All systems reviewed & are unremarkable except as noted in HPI and below PFSH Medical History Allergy to morphine (Acute) History of throat closing after a single dose. Anal pruritus (Resolved) Most likely secondary to dietary factors. Negative colonoscopy BMI 34.0-34.9,adult (Resolved) gained 40lbs during her 1st . Has not been able to lose it. Positive urine test (Acute) RLQ abdominal pain (Resolved) seen [facility] ED 04/21/17. CT of abd/pelvis 2cm R ovarian cyst. Nl appendix. UTI (urinary tract infection) during (Acute) enterococcus sp. Rx with Fosfomycin x1. LIBRADO 06/02/16. Mixed gram + claribel. 07/29/18 GBS + UTI. Rx fosfomycin p.o. LIBRADO mixed gram-positive claribel Surgical History section (~2014) [facility]. Breech presentation. Colonoscopy - MAC (08/20/17) Previous section (Chronic) Family History Other Breast cancer Social History Smoking/Tobacco Use Status: Never Alcohol Intake: never Details: Stopped all alcohol with positive test Drug use: Never Substance use type: does not use Household members: spouse, children and other Details: Jerome, daughter Pooja Number of Children: 1 Seatbelt use: always Do you feel safe at home: Yes Do you feel safe in your relationship?: Yes Female Reproductive History Menstrual control method: none History History 2 Para 1 Hx # Term Pregnancies 1 Multiple births 0 Hx # Pregnancies 0 Ectopic pregnancies 0 AB induced 0 Hx Number of Living Children 1 AB spontaneous 0 Past Pregnancies Del. Date GA/Weeks # Outcome Route Wgt Sex Labor Lgth Anesthesia Location Prov Complic Unknown 40 No Successful 3.629 kg Female breech, [facility] 01/24/16 11/10/18 39 No Successful 3.033 kg Male Emily Penadouglas Delivery Date: On 05/05/18 @ 13:26 MABEL CHOI desires repeat c/s. Delivery Date: 01/24/16 No notes to display Delivery Date: 11/10/18 On 11/23/18 @ 10:22 Vahid TREVIZOSimi bilateral salpingectomy Exam Narrative Exam Narrative: Laying comfortably in the hospital stretcher. No acute distress. Alert and oriented x3. Evaluation of the left leg shows mild swelling and effusion about the left knee. No skin defect. No abrasion or laceration. There is exquisite pain to palpation over the medial aspect of the patella and to lesser extent over the medial aspect of the knee itself. No pain to palpation of the tibia. Intact ankle dorsiflexion, plantarflexion, inversion and eversion. Sensation intact light touch over the deep and superficial peroneal nerves and tibial nerve. Results Last Vital Signs Temp 36.6 C 03/15/19 15:07 Pulse 82 03/15/19 15:07 Resp 18 03/15/19 15:07 BP 138/66 03/15/19 15:07 Pulse Ox 99 03/15/19 15:07 Imaging Imaging Studies: X-ray of the left knee shows preserved joint spaces. The patellar view has a small avulsion fracture over the medial aspect, likely representing avulsion of the MPFL origin.
== END 2019-03-15 16:59 | disposition home or self-care (01) ==
PROVIDERS: Emergency Provider Nurse Practitioner Family; PCP Nurse Practitioner Family
DX: S82.092A Other fracture of left patella, initial encounter for closed fracture (principal); S83.004A Unspecified dislocation of right patella, initial encounter; W17.89XA Other fall from one level to another, initial encounter
CPT/HCPCS: 29505; 99253; 99283; 73564; 99282; E0114; L1830

== ENCOUNTER 2019-04-20 11:11 | Outpatient (CLI) | payer MEDICAID, SELFPAY ==
--- NOTE | 2019-04-20 09:55 | DI.RAD_ITS ---
EXAM: XR KNEE LT 3V AP,LAT,BRENDA INDICATION: f/u dislocation. COMPARISON: XR knee RT 3V AP,lat,brenda from 01/26/2019 XR KNEE LT 4V AP,LAT,BRENDA,PAT from 03/15/2019 TECHNIQUE: 2D digital imaging was performed. FINDINGS: There is normal alignment of the knee. There are again seen tiny ossific densities at the medial asp ect of the patella. These may represent small fracture fragments. Soft tissues are unremarkable.
== END 2019-04-20 11:31 ==
PROVIDERS: PCP Nurse Practitioner Family; Visit Provider Student in an Organized Health Care Education/Training Program
DX: S83.005D Unspecified dislocation of left patella, subsequent encounter (principal)
CPT/HCPCS: 73562

== ENCOUNTER 2019-06-14 15:31 | Outpatient (REF) | payer MEDICAID, SELFPAY | END 2019-06-14 15:51 | LOC: LBN 15:31 | PROVIDERS: PCP Nurse Practitioner Family; Visit Provider Nurse Practitioner Family | DX: R30.0 Dysuria (principal) | CPT/HCPCS: 87077; 87086; 87186 ==

== ENCOUNTER 2019-07-13 11:51 | Outpatient (CLI) | payer MEDICAID, SELFPAY ==
--- NOTE | 2019-07-13 08:20 | DI.RAD_ITS ---
EXAM: XR KNEE RT 3V AP,LAT,BRENDA INDICATION: Pain. COMPARISON: XR KNEE LT 3V AP,LAT,BRENDA from 04/20/2019 TECHNIQUE: 2D digital imaging was performed. FINDINGS: There is mild periarticular spurring in the medial femoral tibial joint space. The articular surface s are otherwise well maintained. The bones are normally mineralized and intact. The soft tissues ar e unremarkable. IMPRESSION: Mild degenerative changes in the right knee.
--- NOTE | 2019-07-13 08:20 | DI.RAD_ITS ---
EXAM: XR KNEE LT 3V AP,LAT,BRENDA INDICATION: Pain. COMPARISON: XR knee LT 3V AP,lat,brenda from 01/26/2019 TECHNIQUE: 2D digital imaging was performed. FINDINGS: There are tiny osseous densities adjacent to the medial patella. They appear well corticated suggest ing old injury. The joint spaces are well maintained. The bones are normally mineralized. The soft tissues are unremarkable.
== END 2019-07-13 12:11 ==
PROVIDERS: PCP Nurse Practitioner Family; Visit Provider Student in an Organized Health Care Education/Training Program
DX: M25.562 Pain in left knee (principal); M22.8X2 Other disorders of patella, left knee; M25.561 Pain in right knee; M17.11 Unilateral primary osteoarthritis, right knee
CPT/HCPCS: 73562

== ENCOUNTER 2019-07-25 01:51 | Outpatient (CLI) | payer MEDICAID, SELFPAY ==
--- NOTE | 2019-07-25 08:25 | DI.MRI_ITS ---
EXAM: MR LOWER JOINT LT WO CLINICAL HISTORY: Recurrent patella dislocation. MPFL injury. Cartilage lesion patella.s83.005a,m22. 42 TECHNIQUE: Multiplanar multisequence MRI was performed. COMPARISON: No exams were available for comparison FINDINGS: Medial and lateral menisci are unremarkable. The anterior and posterior cruciate ligaments are intact. The lateral collateral ligament is intact. There is a question of a tear of the deep fibers of the m edial collateral ligament. There is thickening and increased signal seen in the medial retinaculum at its attachment site onto t he patella. The finding is suspicious for a partial tear. The lateral retinaculum is unremarkable. The extensor mechanism is intact. There is marrow edema seen in the distal femur laterally and the patella, predominantly medially. T his would be consistent with prior patellar dislocation. Linear areas of low signal are seen in the lateral patella. Fracture cannot be excluded. There is cartilage loss and intense signals seen within the articular cartilage of the lateral patell ar facet. Underlying marrow edema is seen suggesting chondromalacia. There is a small popliteal cyst. A small amount of fluid is seen in the joint space. The muscles appear grossly unremarkable. IMPRESSION: 1. Increased signal in the medial retinaculum at its attachment site onto the patella. Findings are suspicious for partial tear. 2. Marrow edema seen in the patella and distal femur consistent with prior patellar dislocation. 3. No evidence of a meniscal tear. 4. Chondromalacia patella.
== END 2019-07-25 02:11 ==
PROVIDERS: PCP Nurse Practitioner Family; Visit Provider Student in an Organized Health Care Education/Training Program
DX: M25.562 Pain in left knee (principal); M22.42 Chondromalacia patellae, left knee; M22.02 Recurrent dislocation of patella, left knee; R60.0 Localized edema; M71.22 Synovial cyst of popliteal space [Baker], left knee
CPT/HCPCS: 73721